=== PATIENT | female | born 1975 | race Caucasian/White ===

== ENCOUNTER 2017-08-01 19:49 | Emergency (ER) | payer OTHER ==
[~2017-08-01] VITALS: Ht 162.6 cm; Wt 65.3 kg
[2017-08-01 20:00] VITALS: BP 125/98
[2017-08-01] MEDS ORDERED: CEFPODOXIME PROXETIL 100 MG TABLET PO STA (20:36)
[2017-08-01] MEDS ORDERED: FLUC150T PO (20:41)
[2017-08-01] MEDS ORDERED: CEFP200T PO (20:41)
--- NOTE | 2017-08-01 20:41 | PHYS DOC ---
Past History Past Medical History: Other Past Surgical History: , Other Alcohol Use: None Drug Use: None Adult General Chief Complaint Chief Complaint: PAIN ON URINATION HPI HPI Patient is a 42 year old female who presents with complaint of dysuria and urinary frequency. Patient symptoms have been present starting this morning upon awakening. Patient states that she has had history of frequent urinary tract infections and states that her symptoms are very similar to previous episodes. Patient does state that she has set an appointment with a urogynecologist on August 23 of this month. Patient states that she does note mild radiation of discomfort into her bilateral flanks. Patient has had mild nausea but denies any vomiting and has been eating and drinking normal amounts at home. Patient rates her pain as 4 out of 10. Review of Systems Review of Systems Constitutional: Denies fever or chills [] Eyes: Denies change in visual acuity, redness, or eye pain [] HENT: Denies nasal congestion or sore throat [] Respiratory: Denies cough or shortness of breath [] Cardiovascular: Denies chest pain or edema[] GI: Nausea, denies vomiting, bloody stools or diarrhea [] : Dysuria, hematuria[] Musculoskeletal: Denies back pain or joint pain [] Integument: Denies rash or skin lesions [] Neurologic: Denies headache, focal weakness or sensory changes [] Allergies Allergies Allergies Coded Allergies Type Severity Reaction Last Updated Verified promethazine Adverse Reaction Intermediate 08/01/17 Yes Physical Exam Physical Exam Constitutional: Alert, afebrile, no acute distress. [] HENT: Normocephalic, atraumatic, bilateral external ears normal, oropharynx moist, no oral exudates, nose normal. [] Eyes: PERRLA, EOMI, conjunctiva normal, no discharge. [] Neck: Normal range of motion, no tenderness, supple, no stridor. [] Cardiovascular:Heart rate regular rhythm, no murmur [] Lungs & Thorax: Bilateral breath sounds clear to auscultation [] Abdomen: Bowel sounds normal, soft, no tenderness, no masses, no pulsatile masses. [] Skin: Warm, dry, no erythema, no rash. [] Back: No tenderness, mild bilateral CVA tenderness to palpation with no guarding , no flank ecchymosis. [] Extremities: No tenderness, no cyanosis, no clubbing, ROM intact, no edema. [] Neurologic: Alert and oriented X 3, normal motor function, normal sensory function, no focal deficits noted. [] Current Patient Data Vital Signs Vital Signs Date Time Temp Pulse Resp B/P (MAP) Pulse Ox O2 Delivery O2 Flow Rate FiO2 08/01/17 20:00 98.7 76 16 96 Room Air Lab Results Laboratory Tests Test 08/01/17 20:08 Urine Collection Type Unknown Urine Color Yellow Urine Clarity Cloudy Urine pH 7.0 Urine Specific [place] 1.025 Urine Protein 30 mg/dl Urine Glucose (UA) Neg mg/dL Urine Ketones (Stick) Neg mg/dL Urine Blood Trace Urine Nitrite Neg Urine Bilirubin Neg Urine Urobilinogen Dipstick 1 mg/dL Urine Leukocyte Esterase Small Urine RBC 20-40 /HPF Urine WBC 20-40 /HPF Urine Squamous Epithelial Cells Few /LPF Urine Bacteria Few /HPF Current Medications Medications (Trade) Dose Ordered Sig/Alice Route PRN Reason Start Time Stop Time Status Last Admin Dose Admin Cefpodoxime Proxetil (Vantin) 200 mg 1X STAT PO 08/01/17 20:36 08/01/17 20:38 DC 08/01/17 20:44 EKG EKG Not performed[] Radiology/Procedures Radiology/Procedures Not performed[] Course & Med Decision Making Course & Med Decision Making Pertinent Labs and Imaging studies reviewed. (See chart for details) The patient was recently treated with Macrobid for urinary tract infection. Due to radiation of pain towards the flanks, the patient may also be showing signs of possible acute pyelonephritis. Vital signs are stable. The patient will be started on Vantin. First dose was given in the emergency department. The patient also states that she has had history of yeast infections after initiation of antibiotic treatment. The patient was provided with a prescription for oral Diflucan and instructed to take upon onset of any vaginal candidiasis symptoms. Advise follow-up in 3-4 days primary doctor and return to emergency department for any worsening symptoms. Patient voiced understanding and in agreement with treatment plan.[] Dragon Disclaimer Dragon Disclaimer This chart was dictated in whole or in part using Voice Recognition software in a busy, high-work load, and often noisy Emergency Department environment. It may contain unintended and wholly unrecognized errors or omissions. Departure Departure: Impression: Primary Impression: Urinary tract infection Disposition: HOME, SELF-CARE Condition: GOOD Referrals: ELAINE STANTON MD (PCP) Patient Instructions: Urinary Tract Infection Additional Instructions: Follow-up with your primary doctor in the next 3-4 days for reevaluation. Return to the emergency department for any worsening symptoms. Scripts Fluconazole (DIFLUCAN) 150 Mg Tablet 1 TAB PO ONCE Y for SEE ADMIN INSTRUCTIONS, #1 TAB 1 Refill Take one tablet at onset of any symptoms concerning for vaginal yeast infection. Prov: OSWALDO GRACE MD 08/01/17 Cefpodoxime Proxetil (CEFPODOXIME PROXETIL) 200 Mg Tablet 1 TAB PO BID, #14 TAB Prov: OSWALDO GRACE MD 08/01/17 Problem Qualifiers Primary Impression: Urinary tract infection Urinary tract infection type: site unspecified Hematuria presence: with hematuria Qualified Codes: N39.0 - Urinary tract infection, site not specified ; R31.9 - Hematuria, unspecified OSWALDO GRACE MD Aug 01, 2017 20:41
[2017-08-01 21:05] LABS: BACTERIA,URINE FEW /HPF (0-FEW); BILIRUBIN,URINE NEG (NEG); CLARITY,URINE CLOUDY; COLOR,URINE YELLOW; GLUCOSE,URINE NEG (NEG); NITRITE,URINE NEG (NEG); RBC,URINE 20-40 /HPF (0-2); SQUAMOUS EPITHELIAL CELL,UR FEW /LPF; UROBILINOGEN,URINE 1 mg/dL (0.2 mg/dL); WBC,URINE 20-40 /HPF (0-4)
== END 2017-08-01 20:48 | disposition home or self-care (01) ==
LOC: ER 19:49
DX: N39.0 Urinary tract infection, site not specified (principal); R11.0 Nausea; Z87.440 Personal history of urinary (tract) infections; Z88.4 Allergy status to anesthetic agent
CPT/HCPCS: 81001; 87086; 99284